=== PATIENT | female | born 1940 | race Caucasian/White ===

== ENCOUNTER 2017-09-16 20:38 | Emergency (ER) | payer OTHER ==
[~2017-09-16] VITALS: Ht 160 cm; Wt 122.5 kg
[2017-09-16] MEDS ORDERED: ELIQUIS5 MG PO (20:59)
[2017-09-16] MEDS ORDERED: TRAMADOL 50 MG50 MG PO (20:59)
[2017-09-16] MEDS ORDERED: LASIX 40 MG TAB40 M2 PO (20:59)
[2017-09-16] MEDS ORDERED: POTASSIUM20 PO (21:00)
[2017-09-16] MEDS ORDERED: CARVEDILOL12.5 MG PO (21:00)
[2017-09-16] MEDS ORDERED: TRIAMCINOLONE A80 G2 TOP (21:00)
[2017-09-16] MEDS ORDERED: TYLENOL EXTRA500 MG PO (21:00)
[2017-09-16] MEDS ORDERED: CALICUM 500+D1 EACH PO (21:01)
[2017-09-16] MEDS ORDERED: MAGOX 400400 MG PO (21:01)
[2017-09-16] MEDS ORDERED: VITAMIN D3400 UNIT PO (21:01)
[2017-09-16] MEDS ORDERED: GUANFACINE HCL1 MG PO (21:02)
[2017-09-16] MEDS ORDERED: ROBAXIN 750 MG750 M1 PO (22:53)
[2017-09-16] MEDS ORDERED: BUTALB-APAP-CA1 EACH PO (22:53)
[2017-09-16 23:36] VITALS: BP 146/76
== END 2017-09-16 23:52 | disposition home or self-care (01) ==
LOC: M.ERS 20:38
DX: R51 Headache (principal); S16.1XXA Strain of muscle, fascia and tendon at neck level, initial encounter; Z88.6 Allergy status to analgesic agent; Z88.5 Allergy status to narcotic agent; W01.198A Fall on same level from slipping, tripping and stumbling with subsequent striking against other object, initial encounter; Y93.9 Activity, unspecified; Y92.89 Other specified places as the place of occurrence of the external cause; Y99.8 Other external cause status

== ENCOUNTER 2018-10-31 18:57 | Emergency (ER) | payer OTHER ==
[~2018-10-31] VITALS: Ht 160 cm; Wt 122.5 kg
[~2018-10-31 18:57] MED LIST: BUTALB-APAP-CA1 EACH PO; CALICUM 500+D1 EACH PO; CARVEDILOL12.5 MG PO; ELIQUIS5 MG PO; GUANFACINE HCL1 MG PO; LASIX 40 MG TAB40 M2 PO; MAGOX 400400 MG PO; POTASSIUM20 PO; ROBAXIN 750 MG750 M1 PO; TRAMADOL 50 MG50 MG PO; TRIAMCINOLONE A80 G2 TOP; TYLENOL EXTRA500 MG PO; VITAMIN D3400 UNIT PO
[2018-10-31] MEDS ORDERED: SPIRONOLACTONE25 M1 PO (19:11)
[2018-10-31] MEDS ORDERED: MUPIROCIN15 GM TOP (19:22)
== END 2018-10-31 19:36 | disposition home or self-care (01) ==
LOC: M.ERS 18:57
DX: T63.301A Toxic effect of unspecified spider venom, accidental (unintentional), initial encounter (principal); S60.032A Contusion of left middle finger without damage to nail, initial encounter; I10 Essential (primary) hypertension; Z88.5 Allergy status to narcotic agent; Z88.8 Allergy status to other drugs, medicaments and biological substances; Y92.89 Other specified places as the place of occurrence of the external cause